=== PATIENT | male | born 1940 | race Caucasian/White ===

== ENCOUNTER 2016-12-04 09:30 | Day surgery (SDC) | payer MEDICARE, BC ==
[2016-12-03 10:46] LABS: BASOPHILS 0.5 %; BASOPHILS ABSOLUTE 0.04 10/3/uL (0.0-0.16); EOSINOPHILS 2.2 %; EOSINOPHILS ABSOLUTE 0.19 10/3/uL (0.0-0.53); HEMOGLOBIN 16.3 g/dL (13.6-17.8); IMMATURE GRANULOCYTES 0.2 %; IMMATURE GRANULOCYTES ABSOLUTE 0.02 10/3/uL (0.0-0.11); LYMPHOCYTES ABSOLUTE 2.24 10/3/uL (0.67-4.30); MANUAL DIFF NO %; MEAN CORPUSCULAR HEMOGLOB 30.7 pg (26.0-34.0); MEAN CORPUSCULAR VOLUME 90.4 fL (80-100); MONOCYTES 8.8 %; MONOCYTES ABSOLUTE 0.76 10/3/uL (0.21-1.20); NEUTROPHILS 62.3 %; NEUTROPHILS ABSOLUTE 5.35 10/3/uL (2.02-8.40); PLATELET COUNT 212 10/3/uL (150-400); RBC DISTRIBUTION WIDTH 12.7 % (12.0-16.0); RED CELL COUNT 5.31 10/6/uL (4.7-6.1); WHITE BLOOD CELLS 8.6 10/3/uL (4.5-10.5)
[2016-12-03 10:57] LABS: BUN (BLOOD UREA NITROGEN) 17 MG/DL (6-23); CALCIUM, SERUM 8.8 MG/DL (8.5-10.4); CHLORIDE, SERUM 110 MMOL/L (96-112); CO2 (CARBON DIOXIDE) 30 MMOL/L (24-34); CREATININE 1.49 MG/DL (0.70-1.30); GFR AFRICAN AMERICAN 51 ML/MIN (>=60); GFR NON AFRICAN AMERICAN 44 ML/MIN (>=60); GLUCOSE, SERUM 130 MG/DL (60-99); POTASSIUM, SERUM 3.8 MMOL/L (3.5-5.3); SODIUM, SERUM 144 MMOL/L (135-148)
--- NOTE | ~2016-12-04 | OP ---
Record Of Operation [facility] [address] [place]. [address] NAME: ELDA ALFONSO : 36 STATUS : [facility]#: [id number] AGE: 76 ADM/REG DATE : 12/04/16 MR#: [id number] REPORT SERV DATE: 12/04/16 DICTATED BY: WILBUR WELSH DATE: 12/04/16 REPORT STATUS : Draft TRANSCRIBED BY: MODIsmael DATE: 12/04/16 DATE OF PROCEDURE: 12/04/2016 SERVICE: Otolaryngology. PREOPERATIVE DIAGNOSES: 1. Chronic left frontal sinusitis. 2. Chronic left ethmoid sinusitis. 3. Chronic left maxillary sinusitis. POSTOPERATIVE DIAGNOSES: 1. Chronic left frontal sinusitis. 2. Chronic left ethmoid sinusitis. 3. Chronic left maxillary sinusitis. PROCEDURES: 1. Left endoscopic frontal sinusotomy. 2. Left endoscopic anterior ethmoidectomy. 3. Left endoscopic maxillary antrostomy with removal of contents. ANESTHESIA: General endotracheal anesthesia. ESTIMATED BLOOD LOSS: 10 mL. COMPLICATIONS: None. SPECIMEN: Left nasal contents. FINDINGS: The patient had extensive allergic fungal mucin with super infection of the left maxillary sinus. There was inflamed diseased anterior ethmoid tissue and a narrowed frontal sinus outflow tract on the left. STATEMENT OF MEDICAL NECESSITY: This is a 76-year-old male, referred to me for a two- to three-month history of left-sided facial pain and pressure. CT scan obtained prior showed complete impaction of the left maxillary sinus with a heterogeneous signal, inflammation of the anterior ethmoid and frontal sinuses as well. Given this finding and the likelihood that the maxillary sinus needed to be cleaned out, or given the appearance on CT, I planned the above surgery. STATEMENT OF OPERATION: The patient was brought to the operating room in supine position, transferred over to the operating room table. After all pressure points were padded and general endotracheal anesthesia was established, the nasal hairs on the left-hand side were trimmed and the nose was packed with 4% cocaine-soaked pledgets. The patient was then draped out for sinus surgery. The pledgets were removed. A 0 degree endoscope was introduced into the left nasal cavity. 1% lidocaine with epinephrine was injected into the middle turbinate, the root of the middle turbinate, and uncinate process lateral nasal wall. Record Of Operation [facility] [address] [place]. [address] NAME: ELDA ALFONSO : 36 STATUS : [facility] PAT#: [id number] AGE: 76 ADM/REG DATE : 12/04/16 MR#: [id number] REPORT SERV DATE: 12/04/16 DICTATED BY: WILBUR WELSH DATE: 12/04/16 REPORT STATUS : Draft TRANSCRIBED BY: EVON DATE: 12/04/16 Next, the middle turbinate was gently lateralized using a [place] elevator. Using an [employer] frontal balloon system, I cannulated the frontal sinus and inflated it to 12 atmospheres for three seconds, released it. I then irrigated out the frontal sinus thoroughly with the attached irrigation system. The balloon system was then removed. Next, using the hooked end of a frontal sinus probe, I anteriorized the uncinate process of the left maxillary sinus. Upon doing this, thick yellow exudate of toothpaste consistency came out along with fungal mucin. I widely opened the maxillary sinus using a microdebrider to remove the uncinate process in its entirety and pediatric backbiting forceps to remove tissue inferiorly and anteriorly. Then using a curved suction and a forced hydrodebrider, I irrigated out thoroughly the maxillary sinus. It was completely impacted with thick fungal mucin, which was removed for culture and pathology. Using angled scopes, I was able to completely evaluate the sinus all the way to the anterior face and I continued to hydrodebride until all the debris was completely removed. Next, using a frontal sinus probe, I palpated the attachment of the middle turbinate and pulled the anterior ethmoid cells forward. I then removed the diseased anterior ethmoid cells with a microdebrider and straight [place] forceps. Finally, I surveyed the cavity. Bleeding was controlled. I placed a mini Propel stent in the cavity between the lateral nasal wall and the inferior turbinate. This concluded the case. I suctioned the patient's nasopharynx out well. He was turned back over to Anesthesia, where he awoke, was extubated, and transferred to the PACU in stable condition. PS/EVON Wilbur Welsh MD / [id number] CC: MD Antonio Welsh M.D.
[~2016-12-04 09:30] MED LIST: ACET500CAP PO; ALEVE220 MG PO; ASA5GR PO; ASAB PO; BYDUREON2 MG SQ; BYETTA SC; C1 PO; C25; CELEBREX2 PO; COREG6 PO; COZ25 PO; CRESTOR10 PO; CRESTOR20 MG PO; CRESTOR40 MG PO; CYMBALTA30 PO; JANUVIA100 MG PO; KLOR-CON M2020 MEQ PO; L40 PO; LESXL80 PO; NEXIUM40 PO; NORV5 PO; PLAVIX PO; PROVHFA INH; SACU1TAB PO; SPIRIVA INH; STARLIX60 PO
[2016-12-04 10:04] LABS: INTERNATIONAL NORMAL RATI 1.1 UNITS (-); PROTIME (NOT ORD) 14.5 SEC (12.0-14.5)
== END 2016-12-04 16:18 | disposition home or self-care (01) ==
LOC: SDC 09:30
PROVIDERS: Anesthesiology; Otolaryngology
PROC: 099 Ear, Nose, Sinus, Drainage (ICD-10-PCS; 2016-12-04)
PROC: 09BV4ZZ Excision of Left Ethmoid Sinus, Percutaneous Endoscopic Approach (ICD-10-PCS; principal; 2016-12-04 11:30)
PROC: 09BT4ZZ Excision of Left Frontal Sinus, Percutaneous Endoscopic Approach (ICD-10-PCS; 2016-12-04 11:30)
DX: J32.1 Chronic frontal sinusitis (principal); J32.2 Chronic ethmoidal sinusitis; J32.0 Chronic maxillary sinusitis; I10 Essential (primary) hypertension; I25.10 Atherosclerotic heart disease of native coronary artery without angina pectoris; I48.0 Paroxysmal atrial fibrillation; E11.9 Type 2 diabetes mellitus without complications; G47.33 Obstructive sleep apnea (adult) (pediatric); Z95.1 Presence of aortocoronary bypass graft; Z95.5 Presence of coronary angioplasty implant and graft; Z88.5 Allergy status to narcotic agent; Z79.01 Long term (current) use of anticoagulants; Z79.02 Long term (current) use of antithrombotics/antiplatelets; Z79.899 Other long term (current) drug therapy
CPT/HCPCS: 80048; 82962; 85025; 85610; 87015; 87070; 87075; 87077; 87102; 87116; 87186; 87205; 88305; 93005; A9270-GY; C1725; C1726; J2370; J2405; J2710; J3010